=== PATIENT | male | born 1945 | race Caucasian/White ===

== ENCOUNTER 2016-06-21 14:54 | Outpatient (CLI) | payer MEDICARE | END 2016-06-21 14:55 | disposition home or self-care (01) | LOC: BURLAB 14:54 | PROVIDERS: ATTEND Emergency Medicine | DX: Z11.1 Encounter for screening for respiratory tuberculosis (principal) | CPT/HCPCS: 36415; 86480 ==

== ENCOUNTER 2016-09-16 06:08 | Outpatient (CLI) | payer MEDICARE, OTHER ==
[2016-09-16 07:10] LABS: ALT (SGPT) 31 U/L (8-55); AST (SGOT) 25 U/L (5-34); Alkaline Phosphatase 77 U/L (40-150); Anion Gap 13 mmol/L (10-20); BUN (Urea Nitrogen) 20 mg/dL (8.4-25.7); Calc. Creatinine Clearance 0 mL/min (70-130); Carbon Dioxide 24 mmol/L (23-31); Cardiac Risk 2.8 (Less than 4.5); Chloride 110 mmol/L (98-107); Cholesterol 142 mg/dl (< 200 Desired); Estimated GFR-MDRD 82; Globulin 2.6 g/dL (2.4-3.5); Glucose 103 mg/dL (83-110); HDL Cholesterol 50 mg/dL (>60 Neg Risk); LDL Cholesterol, Calculated 71 mg/dL; Potassium 4.1 mmol/L (3.5-5.1); Protein, Total 6.6 g/dL (5.8-8.1); Sodium 143 mmol/L (136-145); Triglycerides 103 mg/dL (Less than 150)
[2016-09-16 07:20] LABS: #Basophils 0.1 thou/uL (0.0-0.2); #Eosinphils 0.5 thou/uL (0.0-0.7); #Monocytes 0.8 thou/uL (0.11-0.59); #Neutrophils 6.1 thou/uL (1.40-6.50); %Basophils 1.3 % (0.0-1.0); %Eosinophils 5.6 % (0.0-10.0); %Monocytes 8.7 % (0.0-10.0); %Neutrophils 63.4 % (42.0-75.0); Hemoglobin 14.8 g/dL (14.0-18.0); Mean Corpuscular HGB CONC 33.4 g/dL (32.0-36.0); Mean Corpuscular Hemoglobin 30.6 pg (27.0-31.0); Mean Corpuscular Volume 91.8 fl (80.0-94.0); Mean Platelet Volume 7.3 fL (7.4-10.4); Platelet Count 181 thou/uL (130-400); RBC Distribution Width 12.2 % (11.5-14.5); Red Blood Cell (RBC) Count 4.83 mill/uL (4.70-6.10); White Blood Cell (WBC) Count 9.5 thou/uL (4.8-10.8)
[2016-09-16 07:27] LABS: PSA-Symptomatic (DIAGNOSTIC) 2.42 ng/mL (0-4.0); Vitamin D, 25 Hydroxy 39.4 ng/ml (> 30.0)
--- NOTE | 2016-09-16 08:08 | RAD ---
CHEST 2 VIEWS: Date: 09/16/16 PA and lateral views are compared with the 07/24/04 study done at [facility]. brandon sternotomy sutures are seen from prior surgery. The heart size is normal. There is no vascular congestion, edema, or pleural effusion. The lungs are clear. A small calcified granuloma is seen in the left base, which was present before. The lungs are slightly hyperexpanded. IMPRESSION: Stable exam showing no acute findings. POS: HOME
== END 2016-09-16 06:09 | disposition home or self-care (01) ==
LOC: BURLAB 06:08
PROVIDERS: ATTEND Internal Medicine
DX: Z12.5 Encounter for screening for malignant neoplasm of prostate (principal); E78.01 Familial hypercholesterolemia; E55.9 Vitamin D deficiency, unspecified; R51 Headache; I10 Essential (primary) hypertension; Z79.899 Other long term (current) drug therapy
CPT/HCPCS: 36415; 71020; 80053; 80061; 82306; 84153; 85025; 85652